=== PATIENT | female | born 1980 | race Caucasian/White ===

== ENCOUNTER 2019-06-13 18:11 | Emergency (ER) | payer BC ==
[~2019-06-13] VITALS: Ht 180.3 cm; Wt 120.2 kg
--- OUTSIDE RECORDS SUMMARY | 2019-06-13 18:13 | XMS REPORT ---
[facility] Address Unknown Phone Unavailable Care Team Providers Care Hydro Technician Name Role Phone Unavailable Unavailable Payers Payer Name Policy Type Policy Number Effective Date Expiration Date Problems This patient has no known problems. Allergies, Adverse Reactions, Alerts Allergy Name Allergy Type Status Severity Reaction(s) Onset Date Inactive Date Treating Clinician Comments clindamycin DA Active SV 2018-09-08 00:00:00 amoxicillin DA Active SV 2018-09-08 00:00:00 No Known Intolerances DA Active U 2009-06-15 00:00:00 Medications This patient has no known medications. Results Test Description Test Time Test Comments Text Results Atomic Results Result Comments UTERUS,OTHER THAN PROLAPSE/JUICE 2018-09-16 14:28:00 RUN DATE: 09/16/18 [facility] PAGE 1 RUN TIME: 1721 Specimen Inquiry RUN USER: INTERFACE PATIENT: HARDIK VASQUEZ LOC: [facility] U #: [id number] AGE/SX: 37/F ROOM: [facility] RE09/15/18REG DR: Emily Barrera : 81 BED: A DIS: 09/16/18 STATUS: DIS Ana TLOC: SPEC #: [id number] RECD: 09/15/18 STATUS: [facility] REQ #: [id number] FRANK: 09/15/18- SUBM DR: Emily Barrera MD ENTERED: 09/15/18 SP TYPE: UTERUSOTH OTHR DR: Levi Vieira MD ORDERED: LEVEL V SURGICA CODES: [id number] - UTERUS, NOS [place]IES [place]: [place] [id number] [place], [place] [id number] Emily Barrera MD [address] [place] [id number] [email or web address] PROCEDURES: LEVEL V SURGICA (Incomplete) TISSUES: UTERUS, NOS - UTERUS, CERVIX, BILATERAL FALLOPIAN TUBES AND IUD CLINICAL HISTORY 37 year old, fibroids, pelvic pain (wpd) FINAL DIAGNOSIS Uterus, bilateral fallopian tubes and intrauterine device, hysterectomy, bilateral salpingectomy: - acute and chronic cervicitis, no dysplasia identified - inactive endometrium with hormone effect - leiomyoma with degenerative changes and calcifications of uterine subserosa - benign paratubal cyst of right fallopian tube - left fallopian tube, no significant pathologic alteration - intrauterine device (gross examination) Tissue code 1 CPT code(s): 55162 [facility] CONTINUED ON NEXT PAGE RUN DATE: 09/16/18 [facility] PAGE 2 RUN TIME: 1721 Specimen Inquiry RUN USER: INTERFACE SPEC #: [id number] PATIENT: HARDIK VASQUEZ #[id number] (Continued)------- GROSS DESCRIPTION ANATOMIC SOURCE OF TISSUE (per Requisition): Uterus, cervix, bilateral tubes with intrauterine device The specimen is received in formalin in a container, labeled with the patient's name and designated "uterus, cervix, bilateral tubes with intrauterine device". It consists of a previous partially opened 9 x 8 x 5 cm uterine corpus with attached left fallopian tube with fimbria, a separate segment of right fallopian tube with fimbria, and three separate portions of a partially morcellated uterine cervix aggregating to 4 x 3 x 2 cm. The uterine corpus and cervix aggregate to 171 gm. The serosa is dejesus, smooth, and glistening and contains a protruding 6.5 cm subserosal, firm nodule. The cervical external os measures 1.0 cm. The portio vaginalis measures 2.2 cm. Transportation Planning Technician sections are submitted in A. The endometrial cavity contains a T-shaped white plastic device measuring 3.5 x 3.2 x 0.2 cm. The endometrium measures 0.1 cm The myometrium measures up to 1.5 cm and contains no other lesions. The firm nodule displays slightly yellow calcified areas. Transportation Planning Technician sections are submitted in B - endomyometrium and serosa with firm nodule and C through E - additional sections of the firm nodule. The right fallopian tube with fimbria measures 5 x 0.6 x 0.6 cm and contains paratubal cysts measuring up to 1.1 cm. The entire fimbria and two cross- sections of the tube with the cysts are submitted in F. The left fallop jeffery tube with fimbria measures 7 x 0.4 x 0.3 cm. The entire fimbria and two cross-sections of the tube are submitted in G. kit/wpd 09/15/18 @ 1318 Signed Radha Olmedo MD 09/16/18 1428 END OF REPORT
[2019-06-13] MEDS ORDERED: KETOROLAC TROMETHAMINE 30 MG/ML VIAL IV STA (18:44)
[2019-06-13] MEDS ORDERED: KETOROLAC TROMETHAMINE 30 MG/ML VIAL ONE (18:50)
--- NOTE | 2019-06-13 19:30 | Diagnostic Imaging Report ---
EXAM: PA and lateral views of the chest. COMPARISON: None CLINICAL HISTORY: Left-sided chest pain ^[id number] ^[id number] FINDINGS: Lines/tubes: None. Lungs: The lungs are well inflated and clear. Incidental right upper Azygous lobe, congenital variant. Pleura: There is no pleural effusion or pneumothorax. Heart and mediastinum: The cardiomediastinal silhouette is normal. Bones and soft tissues: No acute bony abnormalities. IMPRESSION: No acute cardiopulmonary abnormalities. Signed by: Dr. Ines Hernandez M.D. on 06/13/2019 7:26 PM
[2019-06-13 20:19] VITALS: BP 135/60
== END 2019-06-13 20:23 | disposition home or self-care (01) ==
LOC: FSED 18:11
DX: R07.89 Other chest pain (principal); F41.1 Generalized anxiety disorder; F32.1 Major depressive disorder, single episode, moderate
CPT/HCPCS: 71046; 80053; 80307; 81003; 82553; 84484; 85025; 93005; 99284; J1885